=== PATIENT | female | born 1975 ===

== ENCOUNTER 2019-04-02 09:50 | Day surgery (SDC) | payer OTHER | END 2019-04-02 14:40 | disposition home or self-care (01) | LOC: AMB-ENDOS 09:50 | DX: K64.8 Other hemorrhoids (principal); Z12.11 Encounter for screening for malignant neoplasm of colon ==

== ENCOUNTER 2020-11-29 16:49 | Emergency (ER) | payer OTHER ==
[~2020-11-29] VITALS: Ht 165.1 cm; Wt 52.2 kg
[2020-11-29] MEDS ORDERED: ZYRTEC10 MG PO (17:29)
[2020-11-29] MEDS ORDERED: RESTORIL30 M1 PO (17:29)
[2020-11-29] MEDS ORDERED: PROZAC20 MG PO (17:29)
[2020-11-29] MEDS ORDERED: SINGULAIR10 MG PO (17:29)
[2020-11-29] MEDS ORDERED: PREDNISONE10 MG PO (17:30)
[2020-11-29] MEDS ORDERED: PROAIR HFA8.5 GM (17:30)
[2020-11-29] MEDS ORDERED: INTESTINEX680 M1 PO (19:50)
[2020-11-29] MEDS ORDERED: AMOXICILLIN500 M1 PO (19:50)
[2020-11-29] MEDS ORDERED: NAPROXEN375 MG PO (19:50)
== END 2020-11-29 20:02 | disposition home or self-care (01) ==
LOC: ER 16:49
DX: S91.322A Laceration with foreign body, left foot, initial encounter (principal); W45.8XXA Other foreign body or object entering through skin, initial encounter; Y93.89 Activity, other specified; Y92.098 Other place in other non-institutional residence as the place of occurrence of the external cause; Y99.8 Other external cause status

== ENCOUNTER 2020-12-06 13:20 | Emergency (ER) | payer OTHER ==
[~2020-12-06] VITALS: Ht 165.1 cm; Wt 52.2 kg
[~2020-12-06 13:20] MED LIST: AMOXICILLIN500 M1 PO; INTESTINEX680 M1 PO; NAPROXEN375 MG PO; PREDNISONE10 MG PO; PROAIR HFA8.5 GM; PROZAC20 MG PO; RESTORIL30 M1 PO; SINGULAIR10 MG PO; ZYRTEC10 MG PO
[2020-12-06] MEDS ORDERED: NAPROXEN375 MG PO (16:58)
[2020-12-06] MEDS ORDERED: INTESTINEX680 M2 PO (16:58)
[2020-12-06] MEDS ORDERED: BACTRIM DS TAB1 EACH PO (16:58)
[2020-12-06] MEDS ORDERED: AMOX-CLAV 875-1 EACH PO (16:58)
== END 2020-12-06 17:16 | disposition home or self-care (01) ==
LOC: ER 13:20
DX: Z48.02 Encounter for removal of sutures (principal)

== ENCOUNTER 2025-05-18 12:08 | Outpatient (CLI) | payer OTHER ==
[~2025-05-18 12:08] MED LIST changes: +AMOX-CLAV 875-1 EACH PO; +BACTRIM DS TAB1 EACH PO; +INTESTINEX680 M2 PO
== END 2025-05-18 12:12 | disposition home or self-care (01) ==
LOC: RAD 12:08
PROVIDERS: ATTEND Pulmonary Function Technologist
DX: J45.909 Unspecified asthma, uncomplicated (principal); J30.1 Allergic rhinitis due to pollen

== ENCOUNTER 2025-06-20 09:08 | Outpatient (CLI) | payer OTHER ==
[2025-06-20 10:26] LABS: URINE APPEARANCE Clear; URINE BILIRRUBIN Negative (NEGATIVE); URINE BLOOD Negative; URINE COLOR Yellow; URINE GLUCOSE Negative (NEGATIVE); URINE KETONE Negative (NEGATIVE); URINE LEUKOCYTE Trace; URINE NITRATE Negative; URINE PROTEIN Negative (NEGATIVE); URINE UROBILINOGEN 0.2 E.U./dl
[2025-06-20 10:27] LABS: BASO % 0.9 % (0.1-1.2); EOS # 0.23 (0.04-0.54); EOS % 4.4 % (0.7-7.0); LYMPH # 1.72 (1.18-3.74); LYMPH % 32.6 % (19.3-53.1); MEAN PLATELET VOLUME 11.00 fl (9.4-12.4); MONO # 0.47 (0.24-0.82); MONO % 8.9 % (4.7-12.5); NEUT # 2.80 (1.56-6.13); NEUT % 53.2 % (34.0-71.1); RED CELL DISTRIBUTION WIDTH 12.1 % (11.6-14.4); URINE BACTERIA 1278.0 uL (0.0-1933); URINE EPITHELIAL CELLS 22.7 uL (0.0-38.8); URINE WBC 18.5 uL (0.0-23.2)
[2025-06-20 10:30] LABS: URINE CAST 0.14 uL (0.0-1.40); URINE RBC 1.3 uL (0.0-20.8)
[2025-06-20 11:19] LABS: ALT/SGPT 32.0 U/L (12-78); AST/SGOT 22.0 U/L (15-37); BILIRUBIN TOTAL 0.45 mg/dL (0.3-1.2); BUN CREA RATIO 23.0 (7.0-25.0); CHOL HDL RATIO 2.1 (0-5.0); CREATININE SERUM 0.77 mg/dL (0.55-1.02); GFR 79.35; GLOBULINA 3.5 G/DL (2.4-3.5); GLUCOSE FASTING 83.0 mg/dL (65-100); HDL 128.0 mg/dl (40-60); LDL 119.0 mg/dl (0-130); OSMOLALITY SERUM 293.0 MOSM/KG (275-295); PHOSPHOKINASE CREATININE 95.0 U/L (26-192); T4 FREE 0.74 NG/ML (0.76-1.46); T4 TOTAL 7.34 UG/DL (4.8-13.9); TSH 1.12 uIU/mL (0.358-3.74); VLDL 17.0 (0-39)
[2025-06-23 12:11] LABS: ESTRADIOL SERUM < 5.0 pg/mL (.); LEUTEINIZING HORMONE 76.4 mIU/mL (.); PROGESTERONA 0.1 ng/mL (.)
[2025-06-23 16:11] LABS: INSULIN LEVELS 5.5 uIU/mL (2.6-24.9)
== END 2025-06-20 09:21 | disposition home or self-care (01) ==
LOC: LAB 09:08
PROVIDERS: ATTEND Internal Medicine Cardiovascular Disease
DX: E78.2 Mixed hyperlipidemia (principal); E03.9 Hypothyroidism, unspecified; E11.9 Type 2 diabetes mellitus without complications; D50.9 Iron deficiency anemia, unspecified; F41.9 Anxiety disorder, unspecified; R68.82 Decreased libido; M83.9 Adult osteomalacia, unspecified; E78.00 Pure hypercholesterolemia, unspecified; N40.0 Benign prostatic hyperplasia without lower urinary tract symptoms; E05.90 Thyrotoxicosis, unspecified without thyrotoxic crisis or storm; E55.9 Vitamin D deficiency, unspecified; E21.3 Hyperparathyroidism, unspecified; R78.89 Finding of other specified substances, not normally found in blood; D68.9 Coagulation defect, unspecified; R79.0 Abnormal level of blood mineral; I25.10 Atherosclerotic heart disease of native coronary artery without angina pectoris; E07.89 Other specified disorders of thyroid; R73.03 Prediabetes; E34.9 Endocrine disorder, unspecified